=== PATIENT | female | born 1955 | race Caucasian/White ===

== ENCOUNTER 2020-06-23 10:25 | Emergency (ER) | payer OTHER ==
[~2020-06-23] VITALS: Ht 160 cm; Wt 45.8 kg
[~2020-06-23 10:25] MED LIST: MIGRAINE RELIE1 EACH PO; PHENERGAN 25 MG25 M1 PO; PROMS25 WY RECTAL
[2020-06-23] MEDS ORDERED: CYTOMEL50 MCG PO (12:12)
[2020-06-23] MEDS ORDERED: SPIRONOLACTONE50 MG PO (12:13)
[2020-06-23] MEDS ORDERED: K-DUR 20 MEQ T20 MEQ PO (12:13)
[2020-06-23 12:17] LABS: ABSOLUTE NEUTROPHILS 6.2 thou/uL (1.4-8.2); BASOPHILS 0.2 % (0.0-2.0); EOSINOPHILS 0.4 % (0.0-3.0); HEMATOCRIT 44.8 % (37.0-47.0); HEMOGLOBIN 14.5 gm/dL (12.0-15.0); LYMPHOCYTES 10.2 % (24.0-44.0); MCH 27.9 pg (26.0-34.0); MCHC 32.3 g/dL (28.0-37.0); MCV 86.6 fL (80.0-100.0); POLYS 84.2 % (36.0-66.0); RBC 5.17 mil/uL (4.20-5.00); RDW 16.7 % (10.5-14.5); WBC 7.4 thou/uL (4.0-11.0)
[2020-06-23 12:22] LABS: CALCIUM 9.4 mg/dL (8.5-10.1); CREATININE 1.1 mg/dL (0.6-1.0); POTASSIUM 5.1 mmol/L (3.5-5.1)
[2020-06-23 12:27] LABS: ALBUMIN 4.2 g/dL (3.4-5.0); TOTAL BILIRUBIN 0.7 mg/dL (0.2-1.0); TOTAL PROTEIN 7.9 g/dL (6.4-8.2)
[2020-06-23 12:38] LABS: PLATELET COUNT 170 thou/uL (150-400); PLATELET ESTIMATE NORMAL
[2020-06-23 12:39] LABS: ANISOCYTOSIS SLIGHT; LARGE PLATELETS OCCASIONAL
[2020-06-23] MEDS ORDERED: PERCOCET 5-3251 EACH PO (14:06)
[2020-06-23] MEDS ORDERED: ULTRA-LIGHT RO1 EACH (14:20)
[2020-06-23 14:47] VITALS: BP 111/48
== END 2020-06-23 15:20 | disposition home or self-care (01) ==
LOC: ER 10:25
PROVIDERS: Physician Assistant
DX: S32.391A Other fracture of right ilium, initial encounter for closed fracture (principal); S70.11XA Contusion of right thigh, initial encounter; S20.211A Contusion of right front wall of thorax, initial encounter; S80.811A Abrasion, right lower leg, initial encounter; G43.909 Migraine, unspecified, not intractable, without status migrainosus; Z79.899 Other long term (current) drug therapy; W11.XXXA Fall on and from ladder, initial encounter; Y93.89 Activity, other specified; Y92.89 Other specified places as the place of occurrence of the external cause; Y99.9 Unspecified external cause status